=== PATIENT | male | born 1935 | race Caucasian/White ===

== ENCOUNTER 2019-05-04 05:41 | Inpatient (IN) | payer MEDICARE ==
--- NOTE | 2019-05-03 10:53 | Diagnostic Imaging Report ---
EXAMINATION: CHEST 2 VIEWS INDICATION: Pre-admit. COMPARISON: None FINDINGS: TUBES and LINES: None. LUNGS: Lungs are well inflated. There is no evidence of pneumonia or pulmonary edema. Mild patchy left basilar opacity, likely atelectasis. PLEURA: No pleural effusion or pneumothorax. HEART AND MEDIASTINUM: The cardiomediastinal silhouette is unremarkable. There are atherosclerotic calcifications within the aorta. BONES AND SOFT TISSUES: No acute osseous abnormality. UPPER ABDOMEN: No free air under the diaphragm. IMPRESSION: No acute radiographic abnormality. Signed by: Dr. Jami Laird MD on 05/03/2019 10:49 AM
[~2019-05-04] VITALS: Ht 175.3 cm; Wt 75.6 kg
[~2019-05-04 05:41] MED LIST: AMLODIPINE BESY10 MG PO; BETA SITOSTEROL PO; CO Q-10100 MG PO; DHEA25 MG PO; FLOMAX0.4 MG PO; GARLIC1500 MG PO; GRAPE SEED EXTR50 MG PO; HYDRALAZINE HCL25 MG PO; IRON PO; LOSARTAN POTAS100 MG PO; NORTRIPTYLINE H25 MG PO; PANTOPRAZOLE SO40 MG PO; PLAVIX75 MG PO; VIT B12 PO; ZETIA10 MG PO; ZINC50 MG PO
--- OUTSIDE RECORDS SUMMARY | 2019-05-04 05:54 | XMS REPORT | Summary of Care ---
Author Author [facility] [place] Organization [facility] [place] Address Unknown Phone Unavailable Encounter HQ Encntr_alias(FIN) [id number] Date(s): 08/09/16 - 08/09/16 [facility] [place] [address] [place] [id number] [phone] Discharge Disposition: Home or Self Care Attending Physician: Ender Armando MD Vital Signs No data available for this section Problem List No data available for this section Allergies, Adverse Reactions, Alerts No data available for this section Medications No data available for this section Results No data available for this section Immunizations No data available for this section Procedures No data available for this section Social History No data available for this section Assessment and Plan No data available for this section
--- OUTSIDE RECORDS SUMMARY | 2019-05-04 05:54 | XMS REPORT | Continuity of Care Document ---
Author Author [facility] Interface Address Unknown Phone Unavailable Problems Problem Status Onset Date Classification Date Reported Comments Source S29.9XXA - "UNSPECIFIED INJURY OF THORAX Active 08/09/2016 [facility] [place] Medications Medication Details Route Status Patient Instructions Ordering Provider Order Date Source Allergies, Adverse Reactions, Alerts Substance Category Reaction Severity Reaction type Status Date Reported Comments Source Immunizations Immunization Date Given Site Status Last Updated Comments Source Results Order Name Results Value Reference Range Date Interpretation Comments Source Ribs bilateral DX Ribs bilateral DX Bilateral RIB X-RAY SERIES History: 80-year-old male status post a fall and right chest wall pain. Comparison: Chest x-ray 10/26/2013 Findings: Then the rib cage appears intact, there is no evidence for a displaced fracture, no sclerotic or lytic abnormality seen. There is no pneumothorax or pleural effusion. Bones are osteopenic with mild to moderate arthritic changes throughout the spine and shoulders. IMPRESSION: Unremarkable bilateral rib x-ray series. 08/09/2016 - - Read by: Taurus Thomas MD Dictated Date/time: 08/09/16 12:56 Electronically Signed by: Taurus Thomas 08/09/16 12:59 FINAL REPORT JOHN Mitchell Vital Signs Vital Sign Value Date Comments Source Encounters Location Location Details Encounter Type Encounter Number Reason For Visit Attending Provider ADM Date DC Date Status Source [facility] [place] [facility] [id number] Ender Tr 08/09/2016 08/10/2016 [facility] [place] [facility] [id number] VIDA SANTORO 12/30/2018 Active [facility] Procedures Procedure Code Date Perfomer Comments Source
--- OUTSIDE RECORDS SUMMARY | 2019-05-04 05:54 | XMS REPORT ---
Author Author [facility] Address Unknown Phone Unavailable Care Team Providers Care Fashion Consultant Name Role Phone ARCHIE HIGH Unavailable Unavailable Problems This patient has no known problems. Allergies, Adverse Reactions, Alerts This patient has no known allergies or adverse reactions. Medications This patient has no known medications. Results Test Description Test Time Test Comments Text Results Atomic Results Result Comments CHEST 2 VIEWS 2019-05-03 10:46:00 [facility] [address] [address] Patient Name: LARON OLGUIN MR #: [id number] : 1935 Age/Sex: 83/M Req #: [id number] Adm Physician: Ordered by: ARCHIE HIGH MD Report #: [id number] Location: OR Room/Bed: Procedure: [id number] DX/CHEST 2 VIEWS Exam Date: Exam Time: REPORT STATUS: Signed EXAMINATION: CHEST 2 VIEWS INDICATION: Pre-admit. COMPARISON: None FINDINGS: TUBES and LINES: None. LUNGS: Lungs are well inflated. There is no evidence of pneumonia or pulmonary edema. Mild patchy left basilar opacity, likely atelectasis. PLEURA: No pleural effusion or pneumothorax. HEART AND MEDIASTINUM: The cardiomediastinal silhouette is unremarkable. There are atherosclerotic calcifications within the aorta. BONES AND SOFT TISSUES: No acute osseous abnormality. UPPER ABDOMEN: No free air under the diaphragm. IMPRESSION: No acute radiographic abnormality. Signed by: Dr. Montrell Najera MD on 05/03/2019 10:49 AM Dictated By: MONTRELL NAJERA MD [id number] Transcribed By: TEE on 05/03/19 1049 COPY TO: ARCHIE HIGH MD
[2019-05-04] MEDS ORDERED: CELECOXIB 200 MG CAP ONE (06:32)
[2019-05-04] MEDS ORDERED: DEXAMETHASONE SOD PHOS 10 MG/1 ML VIAL ONE (06:32)
[2019-05-04] MEDS ORDERED: GABAPENTIN 300 MG CAP ONE (06:32)
[2019-05-04] MEDS ORDERED: CEFAZOLIN SOD 2 GM/D5W 50ML 50 ML IV ONE (06:33)
[2019-05-04] MEDS ORDERED: SODIUM CHLORIDE 0.9% 500ML 500 ML ONE (06:50)
[2019-05-04] MEDS ORDERED: TRANEXAMIC ACID 1,000 MG/10 ML ML ONE (06:50)
[2019-05-04] MEDS ORDERED: VANCOMYCIN HCL 1,000 MG ONE (06:50)
[2019-05-04] MEDS ORDERED: BACITRACIN 50,000 UNIT VIAL ONE (06:50)
[2019-05-04] MEDS ORDERED: ROPIVACAINE 246.25 MG, EPINEPHRINE HCL 1:1000 1ML 0.5 MG, CLONIDINE HCL 0.08 MG, KETORO... INJ ONE ×5 (07:30)
[2019-05-04] MEDS ORDERED: BUPIVACAINE 7.5MG/ML /DEXTROSE 82.5MG/ML 2 ML AMP INJ ONE (07:55)
[2019-05-04] MEDS ORDERED: DIPHENHYDRAMINE HCL INJ 50 MG/ML VIAL IM/IV PRN (09:30)
[2019-05-04] MEDS ORDERED: ONDANSETRON HCL INJ 2MG/ML 2ML 2 MG/ML VIAL IV PRN (09:30)
[2019-05-04] MEDS ORDERED: KETOROLAC TROMETHAMINE 30 MG/ML VIAL IV PRN (09:30)
[2019-05-04] MEDS ORDERED: ACETAMINOPHEN 650 MG SUPP PR PRN (09:30)
[2019-05-04] MEDS ORDERED: HYDROCODONE/APAP 5MG-325MG TAB PO PRN (09:30)
[2019-05-04] MEDS ORDERED: DOCUSATE SODIUM 100 MG CAP PO PRN (09:30)
[2019-05-04] MEDS ORDERED: PROMETHAZINE HCL (IM) 25 MG/ML VIAL INJ PRN (09:30)
[2019-05-04] MEDS ORDERED: HYDROCODONE/APAP 7.5MG-325MG 1 EA TAB PO PRN (09:30)
--- NOTE | 2019-05-04 10:39 | Diagnostic Imaging Report ---
Exam: Pelvis single view History: Postop right hip replacement Comparison: None. Findings: See impression Impression: Status post total right hip arthroplasty with intact femoral and acetabular components. No periprosthetic displaced fracture. Expected subcutaneous gas and partially visualized overlying skin baldemar. Mild degenerative arthrosis of the left hip. Signed by: Dr. Dilshad Anne M.D. on 05/04/2019 10:36 AM
[2019-05-04] MEDS: ACETAMINOPHEN 1000 MG/100 ML IV SCH ×2 (12:00→18:27)
--- NOTE | 2019-05-04 14:13 | Operative Report ---
DATE OF PROCEDURE: 05/04/2019 SURGEON: Dilshad Barkley MD STRETCHER DRIER OPERATOR: Dexter Kilgore. PREOPERATIVE DIAGNOSIS: Osteoarthritis, right hip. POSTOPERATIVE DIAGNOSIS: Osteoarthritis, right hip. PROCEDURE: Right total hip arthroplasty. INDICATIONS: The patient is an 83-year-old gentleman, who has end-stage arthritis of his right hip. He has failed extensive conservative management and would now like to proceed with a right total hip replacement. The risks and benefits of the procedure have been discussed. He states he understands and wishes to proceed. DESCRIPTION OF PROCEDURE: The patient was brought to the operating room and given a spinal anesthetic. He received prophylactic antibiotics and tranexamic acid in the holding area. He was positioned in the left lateral decubitus position. His right hip was prepped and draped in a sterile manner. A preoperative time-out was performed. A limited incision posterior approach was made to the right hip. Care was taken to avoid injury to the sciatic nerve. Hemostasis was obtained with electrocautery. The posterior capsule and short external rotators were released. The hip was dislocated. An oscillating saw was used to resect the femoral head. Complete loss of articular cartilage in the weightbearing dome was noted. Acetabular retractors were carefully placed. The remnant of the labrum was excised. A superior cyst was decompressed. The true floor of the acetabulum was established with a 48 mm reamer. The socket was then sequentially reamed up to 59 mm. Hemispherical bleeding cancellous bone was encountered. Additional small subchondral cysts were decompressed with a curved curette. A Dannielle Biomet 60 mm outer diameter OsseoTi socket was then impacted into place. Fixation was augmented with two cancellous screws placed into the ilium. Marginal bone quality was encountered. The hip had been thoroughly irrigated on several occasions with a shower tip pulsatile lavage and a spray mixture of polymyxin and vancomycin spray. A highly cross-linked polyethylene liner with a 36 mm inner diameter was then impacted into place. Care was taken to make sure that there was no evidence of soft tissue interposition. A portion of a 100 mL premixed pericapsular injection was injected around the acetabular joint capsule. The socket was packed with a moistly soaked lap sponge and attention was directed towards the proximal femur. A box cutting osteotome and taper pin reamer were used to establish entry to the femoral canal. Taperloc broaches were impacted. A size 17 stem had good canal fill for trial reductions. A +3 mm head was felt to provide appropriate soft tissue balancing, stability and orthodoxy of limb length. The trial implants were removed. The hip was further irrigated. The remainder of the HALEIGH injection was placed into the soft tissue. The implants were seated in approximately 15 degrees of anteversion. The final reduction with a +3 mm ceramic head was performed. The posterior capsule was carefully repaired with interrupted #2 Ethibond. A 500 mg of vancomycin powder were sprinkled into the joint after further irrigation. Gluteal fascia and proximal iliotibial band were closed with interrupted #2 Ethibond. The skin was closed with subcuticular Vicryl and baldemar. A sterile bandage was applied. Estimated blood loss was about 75 mL. All needle and sponge counts were correct. The patient was transported to the recovery room in stable condition. Dilshad Barkley MD DR/LAVONNE /[id number]
[2019-05-04 16:45] VITALS: BP 122/78
[2019-05-04] MEDS ORDERED: ONDANSETRON HCL INJ 2MG/ML 2ML 2 MG/ML VIAL ONE (16:54)
[2019-05-04] MEDS ORDERED: SEVOFLURANE INHAL SOLN 250 ML PEN BTL ONE (16:54)
[2019-05-04] MEDS ORDERED: LIDOCAINE HCL 2% LOCAL INJ 5 ML SDV VIAL INJ ONE (16:54)
[2019-05-04] MEDS ORDERED: PROPOFOL IV EMULSION 10 MG/ML 20 ML VIAL ONE (16:54)
[2019-05-04 17:00] VITALS: BP 122/78
[2019-05-04] MEDS: SODIUM CHLORIDE 0.9% 1000ML 1,000 ML IV SCH (17:29)
[2019-05-04] MEDS: CEFAZOLIN SOD 1 GM/NS 50ML 50 ML IV SCH ×2 (17:29→23:30)
[2019-05-04] MEDS: ASPIRIN 325 MG TAB PO SCH (17:33)
[2019-05-04] MEDS: CELECOXIB 100 MG CAP PO SCH (17:33)
[2019-05-04] MEDS ORDERED: PHENYLEPHRINE HCL 1% 10 MG/ML VIAL ONE (17:48)
[2019-05-04] MEDS ORDERED: FENTANYL CITRATE/PF 100MCG/2 ML INJ ONE (18:36)
[2019-05-04] MEDS ORDERED: MIDAZOLAM HCL 2 MG/2 ML VIAL ONE (18:36)
[2019-05-04 19:00] VITALS: BP 113/63
[2019-05-04 20:00] VITALS: BP 113/63
[2019-05-04] MEDS ORDERED: ZOLPIDEM TARTRATE 5 MG TAB PO PRN (21:00)
[2019-05-05] VITALS: BP 118/65
[2019-05-05] MEDS: ACETAMINOPHEN 1000 MG/100 ML IV SCH ×2 (00:45→06:00)
[2019-05-05 04:00] VITALS: BP 141/63
[2019-05-05] MEDS: SODIUM CHLORIDE 0.9% 1000ML 1,000 ML IV SCH (06:00)
[2019-05-05 06:31] LABS: HEMATOCRIT 24.7 % (38.2-49.6); HEMOGLOBIN 9.1 g/dL (14.0-18.0)
[2019-05-05] MEDS: CEFAZOLIN SOD 1 GM/NS 50ML 50 ML IV SCH (08:03)
[2019-05-05] MEDS: CELECOXIB 100 MG CAP PO SCH (08:03)
[2019-05-05] MEDS: ASPIRIN 325 MG TAB PO SCH (08:03)
[2019-05-05 08:34] VITALS: BP 128/61
[2019-05-05 08:44] VITALS: BP 128/61
[2019-05-05] MEDS ORDERED: ACETAMINOPHEN 1000 MG/100 ML IV PRN (09:30)
[2019-05-05 13:02] VITALS: BP 136/67
[2019-05-05] MEDS ORDERED: NORCO 7.5-3251 EACH PO (13:50)
== END 2019-05-05 14:39 | disposition home health service (06) | DRG 470 ==
LOC: OR 05:41 → PACU V 09:31 → MED/SURG 15:45
PROVIDERS: ADMIT Specialist; ATTEND Specialist
PROC: 0SR90JZ Replacement of Right Hip Joint with Synthetic Substitute, Open Approach (ICD-10-PCS; principal; 2019-05-04 07:59)
DX: M16.11 Unilateral primary osteoarthritis, right hip (principal); I10 Essential (primary) hypertension; I25.10 Atherosclerotic heart disease of native coronary artery without angina pectoris; Z95.5 Presence of coronary angioplasty implant and graft; Z87.891 Personal history of nicotine dependence; Z79.02 Long term (current) use of antithrombotics/antiplatelets
CPT/HCPCS: 36415; 71046; 72170; 85014; 85018; 86850; 86900; 86920; 96365; J0171; J0690; J1100; J1885; J2001; J2250; J2370; J2405; J2795; J3370; J7030; J7040

== ENCOUNTER → 2020-06-06 | Day surgery (SDC) | payer MEDICARE, OTHER ==
[2020-06-02 09:58] LABS: BASOPHILS % 0.4 % (0.0-1.0); EOSINOPHILS % 0.3 % (0.0-6.0); HEMATOCRIT 29.1 % (38.2-49.6); LYMPHOCYTES # (AUTO) 0.3 (1.0-3.2); LYMPHOCYTES % 3.9 % (18.0-39.1); MEAN CORPUSCULAR HEMOGLOBIN 32.9 pg (28-32); MEAN CORPUSCULAR HGB CONC 34.4 g/dL (31-35); MEAN CORPUSCULAR VOLUME 95.7 fL (81-99); MONOCYTES # (AUTO) 1.3 (0.2-0.8); MONOCYTES % 16.8 % (4.4-11.3); NEUTROPHILS % 78.2 % (38.7-80.0); PLATELET COUNT 150 x10e3/uL (140-360); RED BLOOD COUNT 3.04 x10e6/uL (4.3-5.7); RED CELL DISTRIBUTION WIDTH 12.9 % (11.7-14.4)
--- NOTE | 2020-06-02 10:03 | Diagnostic Imaging Report ---
EXAMINATION: CHEST 2 VIEWS INDICATION: ^PRE-OP COMPARISON: Chest radiograph 05/03/2019 FINDINGS: PA and lateral views TUBES and LINES: None. LUNGS: Lungs are well inflated. Lungs are clear. There is no evidence of pneumonia or pulmonary edema. PLEURA: No pleural effusion or pneumothorax. HEART AND MEDIASTINUM: The cardiomediastinal silhouette is unremarkable. Coronary stent in place. BONES AND SOFT TISSUES: No acute osseous lesion. Soft tissues are unremarkable. UPPER ABDOMEN: No free air under the diaphragm. IMPRESSION: No acute thoracic abnormality. Signed by: Dr. Terese Cardoza M.D. on 06/02/2020 10:00 AM
[~2020-06-06] MED LIST changes: +CEFAZOLIN SOD 1 GM/NS 50ML 50 ML IV ONE; +ETOMIDATE 2 MG/ML 10 ML INJ IV ONE; +FENTANYL CITRATE/PF 100MCG/2 ML INJ ONE; +HYDROMORPHONE 1MG/1ML INJ ONE; +KETOROLAC TROMETHAMINE 30 MG/ML VIAL ONE; +LIDOCAINE HCL 2% LOCAL INJ 5 ML SDV VIAL INJ ONE; +MEPERIDINE HCL INJ 25 MG/ML VIAL ONE; +NORCO 7.5-3251 EACH PO; +ONDANSETRON HCL INJ 2MG/ML 2ML 2 MG/ML VIAL ONE; +PROPOFOL IV EMULSION 10 MG/ML 20 ML VIAL ONE; +SEVOFLURANE INHAL SOLN 250 ML PEN BTL ONE
--- NOTE | 2020-06-06 07:10 | NUR ---
SPIRITUAL CARE - Pre-Surgery Assessment: Pt in bed. Pt's at bedside. Pt reported supportive attention from family and friends. Intervention: Trade Mark Attorney provided pastoral presence, hospitality, and sympathetic listening. Acquainted pt with availability of mechanical shovel operator while hospitalized. Outcome: Pt expressed appreciation for visit. No need for follow up indicated at this time. [facility] Spiritual Care Department O: [phone]
--- NOTE | 2020-06-06 08:49 | Operative Report ---
DATE OF PROCEDURE: 06/06/2020 SURGEON: Dilshad Barkley MD ACCOUNTING ASSISTANT: Rickie Lomax, certified PA. PREOPERATIVE DIAGNOSIS: Right distal radius Colles fracture. POSTOPERATIVE DIAGNOSIS: Right distal radius Colles fracture. PROCEDURE: Closed reduction percutaneous pin fixation right distal radius. INDICATIONS: The patient is an 84-year-old gentleman who fell off a ladder. He sustained an angulated and shortened right distal radius fracture. The findings and options have been discussed with the patient. We recommend closed reduction and percutaneous pin fixation. The risks and benefits were reviewed. The patient states he understands and wishes to proceed. PROCEDURE IN DETAIL: The patient was brought to the operating room and placed under general anesthetic. His right upper extremity was prepped and draped in a sterile manner. A preoperative time-out was performed. A C-arm image intensifier was used to assist in confirming a satisfactory closed reduction. Two separate 0.062 K-wires were placed from the radial styloid into the radial shaft. Good bone quality was encountered. Near anatomic reduction was obtained. Final x-rays confirmed satisfactory reduction and positioning of the pins. The pins were cut short, bent and capped. A sterile bandage was applied. The patient was placed into a sugar-tong splint. There was no blood loss and all needle and sponge counts were correct. Dilshad Barkley MD DR/LAVONNE /[id number]
[2020-06-06 10:25] VITALS: BP 143/82
== END | disposition home or self-care (01) ==
LOC: OR 05:22
PROVIDERS: ATTEND Specialist
DX: S52.531A Colles' fracture of right radius, initial encounter for closed fracture (principal); M19.90 Unspecified osteoarthritis, unspecified site; C61 Malignant neoplasm of prostate; I49.1 Atrial premature depolarization; I25.10 Atherosclerotic heart disease of native coronary artery without angina pectoris; I10 Essential (primary) hypertension; E78.5 Hyperlipidemia, unspecified; I25.2 Old myocardial infarction; D64.9 Anemia, unspecified; W11.XXXA Fall on and from ladder, initial encounter; Y93.89 Activity, other specified; Y99.8 Other external cause status; Z01.810 Encounter for preprocedural cardiovascular examination; Z01.812 Encounter for preprocedural laboratory examination; Z01.818 Encounter for other preprocedural examination; Z11.59 Encounter for screening for other viral diseases; Z79.02 Long term (current) use of antithrombotics/antiplatelets; Z95.5 Presence of coronary angioplasty implant and graft; Z86.73 Personal history of transient ischemic attack (TIA), and cerebral infarction without residual deficits; Z87.891 Personal history of nicotine dependence
CPT/HCPCS: 25606; 36415; 71046; 85025; 93005; C1713; J0690; J1170; J1885; J2001; J2175; J2405; J2704; J3010; U0002; 76000